=== PATIENT | male | born 1955 | race Caucasian/White ===

== ENCOUNTER 2019-06-21 21:36 | Emergency (ER) | payer OTHER, MEDICAID ==
[~2019-06-21] VITALS: Ht 165.1 cm; Wt 62.6 kg
--- NOTE | 2019-06-21 22:07 | NUR ---
BIB SELF 63 YEAR ROLD MALE C/O NOSE PAIN WITH SWELLING, REDNESS AND DRAINAGE X3 DAYS. ALERT AND ORIENTED X3, BREATHING EVEN AND UNLABORED NOTED. NOTED PT IS WHEELCHAIR BOUND. WAITING TO BE SEEN BY MD.
[2019-06-21] MEDS ORDERED: CLINDAMYCIN 900 MG/6 ML VIAL ONE (22:29)
[2019-06-21] MEDS ORDERED: CLINDAMYCIN 900 MG in IV D5W 100 ML IV ONE (22:30)
--- NOTE | 2019-06-21 22:36 | NUR ---
CALLED [facility], AWAITING MD CALL BACK
[2019-06-21 22:57] LABS: BASOPHILS # (AUTO) 0.1 /CMM (0.0-0.2); BASOPHILS % (AUTO) 0.7 % (0.0-2.0); EOSINOPHILS % (AUTO) 0.3 % (0.0-6.0); HEMATOCRIT 52 % (39-51); HEMOGLOBIN 17.5 g/dL (13.5-17.5); LYMPHOCYTES # (AUTO) 2.7 /CMM (0.8-4.8); LYMPHOCYTES % (AUTO) 20.4 % (20.0-44.0); MEAN CORPUSCULAR HGB CONC 33 g/dl (31.0-36.0); MEAN CORPUSCULAR VOLUME 96 fL (80-96); MONOCYTES # (AUTO) 0.9 /CMM (0.1-1.30); MONOCYTES % (AUTO) 7.1 % (2.0-12.0); NEUTROPHILS # (AUTO) 9.3 /CMM (1.8-8.9); NEUTROPHILS % (AUTO) 71.5 % (43.0-81.0); RED BLOOD CELL COUNT(AUTO) 5.45 MIL/uL (4.5-6.0)
[2019-06-21 23:05] LABS: CALCIUM, SERUM 9.3 mg/dL (8.5-10.1); POTASSIUM 4.3 mmol/L (3.5-5.1)
[2019-06-21 23:11] LABS: ALBUMIN 3.7 g/dL (3.4-5.0); BILIRUBIN,DIRECT 0.1 mg/dL (0.0-0.2); BILIRUBIN,TOTAL 0.6 mg/dL (0.2-1.0); TOTAL PROTEIN, SERUM 7.3 g/dL (6.4-8.2)
--- NOTE | 2019-06-21 23:22 | NUR ---
IV removed. Catheter intact and site benign. Pressure and 4x4 applied to site. No bleeding noted. PT WANTED TO SMOKE EXPLAINED THAT IV NEEDS TO BE TAKEN OUT. PT VERBALIZED AND UNDERSTANDS
--- NOTE | 2019-06-21 23:25 | NUR ---
PATIENT WENT OUTSIDE TO SMOKE
--- NOTE | 2019-06-21 23:33 | NUR ---
PAGED DR QUINTANILLA
--- NOTE | 2019-06-21 23:33 | NUR ---
PT CAME BACK FROM SMOKING. ENDORSED TO EUNICE CHERRY
--- NOTE | 2019-06-22 01:13 | NUR ---
PT ACCEPTED TO [facility] ER BY DR GRAHAM. # FOR REPORT [phone]. ETA [phone]
[2019-06-22 01:29] LABS: PLATELET COUNT (AUTO) 325 /CMM (150-450)
--- NOTE | 2019-06-22 02:01 | NUR ---
iv line started on LAC 20g.
[2019-06-22 02:11] VITALS: BP 150/94
--- NOTE | 2019-06-22 02:16 | NUR ---
REPORT GIVEN TO JOSHUA MONTALVO OF [facility]. [phone] AT BEDSIDE FOR TRANSPORT, REPORT GIVEN WELL.
--- NOTE | 2019-06-22 02:20 | NUR ---
PT LEFT ON [facility] W/ 2 AMBULANCE STAFF. NAD NOTED.
== END 2019-06-22 02:22 | disposition short-term general hospital (02) ==
LOC: ER 21:36
DX: J34.0 Abscess, furuncle and carbuncle of nose (principal); F17.200 Nicotine dependence, unspecified, uncomplicated; Z86.73 Personal history of transient ischemic attack (TIA), and cerebral infarction without residual deficits; Z88.6 Allergy status to analgesic agent; Z88.2 Allergy status to sulfonamides; Z88.0 Allergy status to penicillin; Z88.8 Allergy status to other drugs, medicaments and biological substances
CPT/HCPCS: 36415; 80048; 80076; 85025; 85730; 96365; 99285; 99406; J3490 ×2; J7060 ×2

== ENCOUNTER → 2021-05-01 | Emergency (ER) | payer OTHER ==
[~2021-05-01] VITALS: Ht 165.1 cm; Wt 65.8 kg
[~2021-05-01] MED LIST: AZIT250T PO
[2021-05-01 12:54] VITALS: BP 147/97
--- NOTE | 2021-05-01 14:31 | NUR ---
COVID PCR SWAB COLLECTED AND SENT TO LAB
--- NOTE | 2021-05-01 14:31 | NUR ---
COVID PCR SWAB COLLECTED AND SENT TO LAB
--- NOTE | 2021-05-01 16:05 | NUR ---
COVID ANTIGEN SWAB DONE AND SENT TO LAB
--- NOTE | 2021-05-01 16:05 | NUR ---
COVID ANTIGEN SWAB DONE AND SENT TO LAB
--- NOTE | 2021-05-01 16:33 | NUR ---
TODD PHILLIPS NOT ABLE TO EDUCATE PT ON CXR RESULT, PT NOT IN ROOM & ELOPED
--- NOTE | 2021-05-01 16:33 | NUR ---
TODD PHILLIPS NOT ABLE TO EDUCATE PT ON CXR RESULT, PT NOT IN ROOM & ELOPED
== END | disposition left against medical advice (07) ==
LOC: ER 12:59
DX: J18.9 Pneumonia, unspecified organism (principal); Z20.822 Contact with and (suspected) exposure to COVID-19; Z86.73 Personal history of transient ischemic attack (TIA), and cerebral infarction without residual deficits; F17.200 Nicotine dependence, unspecified, uncomplicated; Z88.6 Allergy status to analgesic agent; Z88.0 Allergy status to penicillin; Z88.2 Allergy status to sulfonamides; Z88.8 Allergy status to other drugs, medicaments and biological substances; E78.5 Hyperlipidemia, unspecified
CPT/HCPCS: 71045; 87426; 99284; U0003

== ENCOUNTER 2023-11-23 21:59 | Emergency (ER) | payer OTHER, MEDICAID ==
[~2023-11-23] VITALS: Ht 165.1 cm; Wt 65.8 kg
[2023-11-23] MEDS ORDERED: oxyCODONE/APAP (5/325 MG) 1 UDTAB TABLET ONE (22:50)
[2023-11-23] MEDS: oxyCODONE/APAP (5/325 MG) 1 UDTAB TABLET PO ONE (22:56)
[2023-11-23 23:41] VITALS: BP 160/87; TEMP 98.5; O2SAT 98
[2023-11-24 00:17] LABS: BASOPHILS # (AUTO) 0.1 K/uL (0.0-0.2); BASOPHILS % (AUTO) 0.7 % (0.0-2.0); EOSINOPHILS # (AUTO) 0.1 K/uL (0.0-0.7); EOSINOPHILS % (AUTO) 1.3 % (0.0-6.0); HEMATOCRIT 47 % (39-51); HEMOGLOBIN 15.8 g/dL (13.5-17.5); LYMPHOCYTES # (AUTO) 2.8 K/uL (0.8-4.8); LYMPHOCYTES % (AUTO) 31.2 % (20.0-44.0); MEAN CORPUSCULAR HEMOGLOBIN 32 PG (26.0-33.0); MEAN CORPUSCULAR HGB CONC 34 g/dl (31.0-36.0); MEAN CORPUSCULAR VOLUME 96 fL (80-96); MONOCYTES # (AUTO) 0.6 K/uL (0.1-1.30); MONOCYTES % (AUTO) 6.3 % (2.0-12.0); NEUTROPHILS # (AUTO) 5.5 K/uL (1.8-8.9); NEUTROPHILS % (AUTO) 60.5 % (43.0-81.0); PLATELET COUNT (AUTO) 209 K/uL (150-450); RED BLOOD CELL COUNT(AUTO) 4.89 MIL/uL (4.5-6.0); RED CELL DISTRIBUTION WIDTH 14.1 % (11.5-15.0); WHITE BLOOD COUNT (AUTO) 9.1 K/uL (4.3-11.0)
[2023-11-24 00:29] LABS: CALCIUM, SERUM 8.9 mg/dL (8.5-10.1); CREATININE 0.9 mg/dL (0.6-1.3); POTASSIUM 4.5 mmol/L (3.5-5.1)
== END 2023-11-24 01:04 | disposition left against medical advice (07) ==
LOC: ER 22:09
DX: M54.2 Cervicalgia (principal); M54.9 Dorsalgia, unspecified; Z86.73 Personal history of transient ischemic attack (TIA), and cerebral infarction without residual deficits; F17.200 Nicotine dependence, unspecified, uncomplicated; Z79.899 Other long term (current) drug therapy; Z88.0 Allergy status to penicillin; Z88.2 Allergy status to sulfonamides; Z88.5 Allergy status to narcotic agent
CPT/HCPCS: 36415; 72125-TC; 72131-TC; 80048-TC; 85025-TC